=== PATIENT | male | born 1965 | race African-American/Black ===

== ENCOUNTER 2019-09-27 12:53 | Emergency (ER) | payer BC, OTHER ==
[~2019-09-27] VITALS: Ht 180.3 cm; Wt 108.9 kg
[2019-09-27] MEDS ORDERED: ACETAMINOPHEN 325 MG TAB PO ONE (13:15)
--- NOTE | 2019-09-27 15:17 | Diagnostic Imaging Report ---
EXAMINATION: CHEST SINGLE (PORTABLE) INDICATION: fever cough COMPARISON: None FINDINGS: TUBES and LINES: None. LUNGS: Lungs are are moderately inflated. Mild bronchial wall thickening. There is no evidence of pneumonia or pulmonary edema. PLEURA: No pleural effusion or pneumothorax. HEART AND MEDIASTINUM: The cardiomediastinal silhouette is unremarkable. BONES AND SOFT TISSUES: No acute osseous lesion. Soft tissues are unremarkable. UPPER ABDOMEN: No free air under the diaphragm. IMPRESSION: No evidence of pneumonia. Mild bronchial wall thickening, which may represent bronchitis in the setting of cough. Signed by: Dr. Sage Chávez MD on 09/27/2019 3:14 PM
--- NOTE | 2019-09-27 15:47 | Emergency Department Note ---
History of Present Illnes History of Present Illness Chief Complaint: COVID PUI History of Present Illness This is a 54 year old male fever, headache, body aches, aaox4. ambulatory, non smoker. room mate with covid. dry cough. onset yesterday. . Historian: Patient, Family Member Arrival Mode: Car Fiscal Technician Required: No Onset (how long ago): day(s) (1) Radiation: Reports non-radiation Severity: moderate Onset quality: gradual Timing of current episode: intermittent Progression: waxing and waning Chronicity: new Context: Denies recent illness Relieving factors: none Exacerbating factors: none Associated symptoms: Reports cough, Reports fever/chills, Reports headaches, Reports other (BODY ACHES); Denies shortness of breath Past Medical/Family History Physician Review I have reviewed the patient's past medical and family history. Any updates have been documented here. Past Medical History Recent Fever: Yes Clinical Suspicion of Infectio: Yes New/Unexplained Change in Ment: No Past Medical History: None Other Surgery: hemorhoids. Review of Systems Review of Systems Constitutional: Reports as per HPI, Reports chills, Reports fever EENTM: Reports no symptoms Cardiovascular: Reports no symptoms Respiratory: Reports as per HPI, Reports cough; Denies dyspnea Gastrointestinal: Reports no symptoms Genitourinary: Reports no symptoms Musculoskeletal: Reports no symptoms Integumentary: Reports no symptoms Neurological: Reports no symptoms Psychological: Reports no symptoms Endocrine: Reports no symptoms Hematological/Lymphatic: Reports no symptoms Physical Exam Related Data Allergies: Coded Allergies: No Known Allergies (Unverified , 09/27/19) Triage Vital Signs Vital Signs Date Time Temp Pulse Resp B/P (MAP) Pulse Ox O2 Delivery O2 Flow Rate FiO2 09/27/19 13:05 102.0 109 18 161/96 95 Vital signs reviewed: Yes Physical Exam CONSTITUTIONAL Constitutional: Present well-developed, Present well-nourished HENT HENT: Present normocephalic, Present atraumatic, Present oropharynx clear/moist, Present nose normal HENT L/R: Present left ext ear normal, Present right ext ear normal EYES Eyes: Reports PERRL, Reports conjunctivae normal NECK Neck: Present ROM normal PULMONARY Pulmonary: Present effort normal, Present breath sounds normal CARDIOVASCULAR Cardiovascular: Present regular rhythm, Present heart sounds normal, Present capillary refill normal, Present normal rate GASTROINTESTINAL Abdominal: Present soft, Present nontender, Present bowel sounds normal GENITOURINARY Genitourinary: Present exam deferred SKIN Skin: Present warm, Present dry MUSCULOSKELETAL Musculoskeletal: Present ROM normal NEUROLOGICAL Neurological: Present alert, Present oriented x 3, Present no gross motor or sensory deficits PSYCHOLOGICAL Psychological: Present mood/affect normal, Present judgement normal Results Laboratory Laboratory Laboratory Tests Test 09/27/19 13:15 Imaging Imaging results reviewed: Yes Impressions EXAMINATION: CHEST SINGLE (PORTABLE) INDICATION: fever cough COMPARISON: None FINDINGS: TUBES and LINES: None. LUNGS: Lungs are are moderately inflated. Mild bronchial wall thickening. There is no evidence of pneumonia or pulmonary edema. PLEURA: No pleural effusion or pneumothorax. HEART AND MEDIASTINUM: The cardiomediastinal silhouette is unremarkable. BONES AND SOFT TISSUES: No acute osseous lesion. Soft tissues are unremarkable. UPPER ABDOMEN: No free air under the diaphragm. IMPRESSION: No evidence of pneumonia. Mild bronchial wall thickening, which may represent bronchitis in the setting of cough. Signed by: Dr. Sage Chávez MD on 09/27/2019 3:14 PM Assessment & Plan Medical Decision Making MDM CHECK COVID, CXR - R/O PNEUMONIA, COVID19 Reassessment Reassessment DC HOME, [facility], F/U PCP, SELF-QUARANTINE, PRONING, RTED SOB/WORSENING SX'S Assessment & Plan Final Impression: (1) Viral bronchitis Depart Disposition: HOME, SELF-CARE Last Vital Signs Date Time Temp Pulse Resp B/P (MAP) Pulse Ox O2 Delivery O2 Flow Rate FiO2 09/27/19 13:05 102.0 109 18 161/96 95 Medications in the ED Acetaminophen 325 mg ONCE ONCE PO Last administered on 09/27/19at 13:36; Admin Dose 325 MG; Start 09/27/19 at 13:15; Stop 09/27/19 at 13:38; Status DC SURYA GARCIA MD Sep 27, 2019 15:47
--- NOTE | 2019-09-29 11:29 | NUR ---
Pt informed by MD of positive test results
== END 2019-09-27 16:12 | disposition home or self-care (01) ==
LOC: ER 12:55
DX: U07.1 COVID-19 (principal); J20.8 Acute bronchitis due to other specified organisms; R50.9 Fever, unspecified; R05 Cough
CPT/HCPCS: 71045; 87635; 99283